=== PATIENT | female | born 1955 | race Two or more races ===

== ENCOUNTER 2020-12-19 17:47 | Emergency (ER) | payer OTHER ==
[~2020-12-19] VITALS: Ht 162.6 cm; Wt 108.9 kg
[2020-12-19 18:00] VITALS: BP 109/47
[2020-12-19] MEDS ORDERED: FUROSEMIDE 40 MG/4 ML VIAL IV ONE (18:00)
[2020-12-19 18:46] LABS: Basophils # (auto) 0 10 ^3/uL (0-0.2); Eosinophils # (auto) 0.3 10 ^3/uL (0-0.8); Monocytes # (auto) 0.9 10 ^3/uL (0-1.3); Neutrophils # (auto) 5.9 10 ^3/uL (1.6-8.6)
[2020-12-19 18:48] LABS: Albumin 3.4 g/dL (3.4-5.0); Anion Gap 9 (5-15); Basophils % (auto) 0.3 % (0.0-2.0); Blood Urea Nitrogen 44 mg/dL (7-18); Calcium 9.5 mg/dL (8.5-10.1); Carbon Dioxide 25 mmol/L (21-32); Chloride 107 mmol/L (98-107); Eosinophils % (auto) 3.1 % (0.0-7.0); Glucose 143 mg/dL (74-106); Hematocrit 37.3 % (36.0-46.0); Lymphocytes # (auto) 1.5 10 ^3/uL (0.4-5.4); Lymphocytes % (auto) 17.4 % (10.0-50.0); Mean Corpuscular Hemoglobin 25.4 pg (28.0-32.0); Mean Corpuscular Hgb Conc. 32.2 g/dL (32.0-36.0); Mean Corpuscular Volume 78.9 fL (80.0-100.0); Monocytes % (auto) 10.2 % (0.0-12.0); Potassium 4.6 mmol/L (3.5-5.1); Red Blood Cells 4.73 10^6/uL (4.0-5.20); Red Cell Distribution Width 18.1 % (11.8-14.3); Sodium 141 mmol/L (136-145); White Blood Cell 8.6 10^3/uL (4.4-10.8)
[2020-12-19 18:53] LABS: Alanine Aminotransferase 26 U/L (13-56); Alkaline Phosphatase 145 U/L (45-117); Aspartate Aminotransferase 27 U/L (15-37); BUN/Creatinine Ratio 22.3; Bilirubin, Total 0.4 mg/dL (0.2-1.0); GFR African American 33 mL/min; GFR Non-African American 27 mL/min; Total Protein 7.4 g/dL (6.4-8.2)
== END 2020-12-19 22:22 | disposition left against medical advice (07) ==
LOC: EDBD 17:47 → ER 17:47
DX: I11.0 Hypertensive heart disease with heart failure (principal); I50.9 Heart failure, unspecified; E11.9 Type 2 diabetes mellitus without complications; Z95.1 Presence of aortocoronary bypass graft
CPT/HCPCS: 36415; 71045; 80053; 83880; 84484; 85025; 93005

== ENCOUNTER 2023-05-19 12:41 | Emergency (ER) | payer OTHER, MEDICAID ==
[~2023-05-19] VITALS: Ht 162.6 cm; Wt 96.6 kg
[2023-05-19 14:26] LABS: Basophils # (auto) 0.1 10 ^3/uL (0-0.2); Eosinophils # (auto) 0.2 10 ^3/uL (0-0.8); Hemoglobin 11.1 g/dL (12.2-16.2); Lymphocytes # (auto) 0.9 10 ^3/uL (0.4-5.4); Mean Corpuscular Volume 77.3 fL (80.0-100.0); Monocytes # (auto) 0.7 10 ^3/uL (0-1.3); Red Cell Distribution Width 16.5 % (11.8-14.3)
[2023-05-19 14:29] LABS: Basophils % (auto) 0.6 % (0.0-2.0); Eosinophils % (auto) 2.1 % (0.0-7.0); Lymphocytes % (auto) 8.8 % (10.0-50.0); Mean Corpuscular Hemoglobin 25.2 pg (28.0-32.0); Mean Corpuscular Hgb Conc. 32.6 g/dL (32.0-36.0); Monocytes % (auto) 6.8 % (0.0-12.0); Neutrophils # (auto) 7.9 10 ^3/uL (1.6-8.6); Neutrophils % (auto) 81.7 % (37.0-80.0); White Blood Cell 9.6 10^3/uL (4.4-10.8)
[2023-05-19 14:40] LABS: Alanine Aminotransferase 38 U/L (7-40); Albumin 3.7 g/dL (3.2-4.8); Alkaline Phosphatase 184 U/L (46-116); Anion Gap 6 (5-15); Aspartate Aminotransferase 41 U/L (13-40); BUN/Creatinine Ratio 39.8 (10.0-20.0); Blood Urea Nitrogen 47 mg/dL (9-23); Calcium 9.5 mg/dL (8.5-10.1); Carbon Dioxide 24 mmol/L (20-30); Chloride 106 mmol/L (98-107); Glucose 134 mg/dL (74-106); Potassium 5.2 mmol/L (3.5-5.1); Sodium 136 mmol/L (136-145)
[2023-05-19 14:41] LABS: Bilirubin, Total 0.6 mg/dL (0.2-1.0); Total Protein 6.1 g/dL (5.7-8.2)
[2023-05-19 14:46] LABS: INR 1.09 (0.9-1.15); Partial Thromboplastin Time 28.1 SEC (24.5-34.5); Prothrombin Time 11.4 sec (9.3-11.8)
[2023-05-19] MEDS ORDERED: FUROSEMIDE 40 MG/4 ML VIAL IV ONE (16:15)
[2023-05-19] MEDS ORDERED: cefTRIAXone 1GM/50ML D5W 50 ML IV ONE (16:45)
[2023-05-19] MEDS ORDERED: methylPREDNISolone SOD SUCC 1,000 MG in SODIUM CHL 0.9% 250 ML IV ONE (16:45)
[2023-05-19] MEDS: IPRATROPIUM BROM 0.5 MG/2.5ML INH SOL NEB ONE (16:54)
[2023-05-19] MEDS: IPRATROPIUM BROM 0.5 MG/2.5ML INH SOL ONE (16:54)
[2023-05-19] MEDS: ALBUTEROL SULF 2.5 MG/0.5ML(0.5%) NEB SOLN NEB ONE (16:54)
[2023-05-19 16:55] VITALS: BP 98/21; PULSE 66; RESP 12; TEMP 99.2; O2SAT 91
[2023-05-19] MEDS: ALBUTEROL SULF 2.5 MG/0.5ML(0.5%) NEB SOLN ONE (16:55)
== END 2023-05-19 18:46 | disposition left against medical advice (07) ==
LOC: ER 12:41
DX: I11.0 Hypertensive heart disease with heart failure (principal); I50.9 Heart failure, unspecified; J06.9 Acute upper respiratory infection, unspecified; R53.1 Weakness; R26.2 Difficulty in walking, not elsewhere classified; Z88.1 Allergy status to other antibiotic agents; Z20.822 Contact with and (suspected) exposure to COVID-19
CPT/HCPCS: 36415; 71045; 80053; 82962; 83605; 83880; 84484; 85025; 85610; 85730; 93005; 99285; J2930; J7050